=== PATIENT | male | born 1950 | race Two or more races ===

== ENCOUNTER 2017-03-11 03:22 | Emergency (ER) | payer MEDICARE, OTHER, BC ==
[~2017-03-11] VITALS: Ht 175.3 cm; Wt 77.1 kg
[2017-03-11] MEDS ORDERED: IBUP-1114 PO (03:50)
[2017-03-11] MEDS ORDERED: ALEV220C2 PO (03:50)
[2017-03-11] MEDS ORDERED: NS 1,000 ML IV ONE ×2 (04:15→05:30)
[2017-03-11] MEDS ORDERED: KETOROLAC 30 MG/ML VIAL (J1885) IV ONE (04:30)
[2017-03-11] MEDS ORDERED: ONDANSETRON 4MG/2ML VIAL (J2405) IV ONE (04:30)
[2017-03-11] MEDS ORDERED: MORPHINE 4 MG/ML 1ML SYRINGE IV ONE (04:30)
[2017-03-11 04:32] LABS: BASO % 0.4 % (0.0-1.0); EOS # 0.1 K/mm3 (0.0-0.50); EOS % 0.7 % (0.0-3.0); LARGE UNSTAINED CELL # 0.1 K/mm3 (0.0-0.4); LARGE UNSTAINED CELL % 1.3 % (0.0-4.0); LYMPH # 0.9 K/mm3 (1.5-4.5); LYMPH % 9.4 % (24.0-44.0); MEAN CORPUSCULAR HEMOGLOBIN 30.6 pg (27.0-33.0); MEAN CORPUSCULAR HGB CONC 34.2 g/dl (32.0-36.5); MEAN CORPUSCULAR VOLUME 89.3 fl (80.0-96.0); MONO # 0.3 K/mm3 (0.0-0.8); MONO % 3.9 % (0.0-5.0); NEUTROPHILS # 7.2 K/mm3 (1.8-7.7); NEUTROPHILS % 84.4 % (36.0-66.0); PLATELET COUNT, AUTOMATED 181 k/mm3 (150-450); RED CELL DISTRIBUTION WIDTH 12.8 % (11.5-14.5); WHITE BLOOD COUNT 8.5 K/mm3 (4.0-10.0)
[2017-03-11 05:03] LABS: ALBUMIN 3.8 GM/DL (3.2-5.2); ALBUMIN/GLOBULIN RATIO 0.81 (1.00-1.93); BILIRUBIN,DIRECT 0.1 MG/DL (0.0-0.2); BILIRUBIN,TOTAL 0.5 MG/DL (0.2-1.0); CALCIUM LEVEL 8.9 MG/DL (8.8-10.2); CREATININE FOR GFR 1.68 MG/DL (0.70-1.30); GLOMERULAR FILTRATION RATE 43.7 (>49); TOTAL PROTEIN 8.5 GM/DL (6.4-8.2)
[2017-03-11] MEDS ORDERED: GASTROGRAFIN SOLUTION 30ML (Q9963) As Ordered ONE (05:49)
[2017-03-11] MEDS ORDERED: GASTROGRAFIN SOLUTION 30ML (Q9963) PO ONE ×2 (06:15)
[2017-03-11] MEDS: MORPHINE 4 MG/ML 1ML SYRINGE IV PRN ×2 (06:29→08:18)
[2017-03-11 08:22] VITALS: BP 144/69
[2017-03-11] MEDS ORDERED: PERC5TAB6 PO (09:53)
[2017-03-11] MEDS ORDERED: COLA100C3 PO (09:54)
[2017-03-11] MEDS ORDERED: PERCOCET 5MG/325MG TAB PO ONE (10:00)
--- NOTE | 2017-03-11 10:25 | REP ---
CT ABDOMEN AND PELVIS WITHOUT IV CONTRAST: CT abdomen and pelvis performed without IV contrast. Sagittal and coronal reconstruction images are performed. The visualized lung bases demonstrate chronic fibrotic changes. The liver, gallbladder, spleen, adrenals, pancreas and left kidney appear grossly unremarkable. Right kidney demonstrates severe hydronephrosis. There is severe proximal right hydroureter with an abrupt transition point about the L3-4 disc space level. At that location, no stone is seen but there appears to be subtle soft tissue nodularity approximately 14 x 7 mm which could represent a soft tissue nodule or clot. The more distal right ureter is normal in caliber. No bladder calculus is seen. There is no abdominal aortic aneurysm. I see no adenopathy. There is no free air or free fluid. There is no bowel wall thickening. The appendix is normal. The prostate appears prominent in size. There is a small right inguinal hernia containing fat. There are degenerative changes of the spine. IMPRESSION: Severe right hydronephrosis and proximal right hydroureter with an abrupt transition point at about the L3-4 disc space level. At that location, there appears to be a possible soft tissue nodule or blood clot measuring 14 x 7 mm. No renal or ureteral calculi are seen. Signed by Oni Sweet MD 03/11/2017 07:53 P
--- NOTE | 2017-03-13 18:09 | ED PDOC ---
Post-Departure Follow-Up dr burch faxed formal report of ct abd/p for fu Domo Dsouza MD March 13, 2017 18:09
== END 2017-03-11 10:12 | disposition home or self-care (01) ==
LOC: M ED 05:40
DX: N13.30 Unspecified hydronephrosis (principal); N35.9 Urethral stricture, unspecified; N28.9 Disorder of kidney and ureter, unspecified
CPT/HCPCS: 74176; 80048; 80076; 81001; 83036; 83690; 85025; 87086; 93041; 96361; 96374; 96375; 96376; 99285; J1885; J2405; Q9963

== ENCOUNTER → 2017-03-12 | Outpatient (CLI) | payer MEDICARE, BC, OTHER ==
[~2017-03-12] MED LIST: ALEV220C2 PO; COLA100C3 PO; IBUP-1114 PO; PERC5TAB6 PO
[2017-03-12 19:05] LABS: CALCIUM LEVEL 7.9 MG/DL (8.8-10.2); CREATININE FOR GFR 1.74 MG/DL (0.70-1.30); POTASSIUM SERUM 4.1 MEQ/L (3.5-5.1)
== END ==
LOC: M SMT 14:21
PROVIDERS: ATTEND Nurse Practitioner Women's Health
DX: Z12.5 Encounter for screening for malignant neoplasm of prostate (principal); N13.0 Hydronephrosis with ureteropelvic junction obstruction
CPT/HCPCS: 36415; 80048; G0103

== ENCOUNTER → 2017-03-20 | Outpatient (CLI) | payer MEDICARE, BC, OTHER ==
[2017-03-20 13:38] LABS: CALCIUM LEVEL 8.7 MG/DL (8.8-10.2); CREATININE FOR GFR 1.71 MG/DL (0.70-1.30); GLOMERULAR FILTRATION RATE 42.9 (>49); POTASSIUM SERUM 4.5 MEQ/L (3.5-5.1)
== END ==
LOC: M SMT 08:27
PROVIDERS: ATTEND Nurse Practitioner Women's Health
DX: N13.0 Hydronephrosis with ureteropelvic junction obstruction (principal)

== ENCOUNTER → 2017-03-23 | Outpatient (CLI) | payer MEDICARE, BC, OTHER ==
[2017-03-23 10:42] LABS: MEAN CORPUSCULAR HEMOGLOBIN 30.1 pg (27.0-33.0); MEAN CORPUSCULAR HGB CONC 32.8 g/dl (32.0-36.5); MEAN CORPUSCULAR VOLUME 91.6 fl (80.0-96.0); RED CELL DISTRIBUTION WIDTH 12.4 % (11.5-14.5); WHITE BLOOD COUNT 9.2 K/mm3 (4.0-10.0)
--- NOTE | 2017-03-23 10:57 | REP ---
PA and lateral chest: There are no comparisons. The lung powers are clear. The cardiac size is normal The sherin, mediastinum, and bony thorax are unremarkable. Impression: Negative PA and lateral chest. Signed by Oni Samuel MD 03/23/2017 10:49 A
[2017-03-23 11:02] LABS: CALCIUM LEVEL 8.5 MG/DL (8.8-10.2); CREATININE FOR GFR 1.7 MG/DL (0.70-1.30); GLOMERULAR FILTRATION RATE 43.1 (>49); POTASSIUM SERUM 4.5 MEQ/L (3.5-5.1)
--- NOTE | 2017-03-23 19:57 | ECGEPIP ---
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
== END ==
LOC: M LAB 10:10
PROVIDERS: ATTEND Nurse Practitioner Women's Health
DX: Z01.818 Encounter for other preprocedural examination (principal); N13.0 Hydronephrosis with ureteropelvic junction obstruction

== ENCOUNTER 2017-04-10 09:04 | Inpatient (IN) | payer MEDICARE, BC, OTHER ==
[~2017-04-10] VITALS: Ht 172.7 cm; Wt 72.8 kg
[2017-04-10] VITALS (9 sets, daily range): BP systolic 121–164; BP diastolic 76–95
[~2017-04-10 09:04] MED LIST changes: +TYLE500T78 PO
[2017-04-10] MEDS ORDERED: LR 1,000 ML IV ONE (09:15)
[2017-04-10] MEDS ORDERED: CONRAY-60 60% 50ML VIAL (Q9961) As Ordered ONE (09:53)
[2017-04-10] MEDS ORDERED: MIDAZOLAM INJ 2 MG/2 ML VIAL (J2250) As Ordered ONE (11:34)
[2017-04-10] MEDS ORDERED: LR 1,000 ML IV SCH ×2 (12:00→19:00)
[2017-04-10] MEDS ORDERED: fentaNYL 100 MCG/2 ML INJECTION (J3010) IV PRN ×2 (12:00→19:00)
[2017-04-10] MEDS ORDERED: ONDANSETRON 4MG/2ML VIAL (J2405) IV PRN ×2 (12:00→19:00)
--- NOTE | 2017-04-10 13:47 | HPEPDOC ---
Medical History and Physical Date of Admission 04/10/17 History and Physical CONSULTATION REPORT FOR: Dr Bloom REASON FOR CONSULTATION: Medical Management DATE OF VISIT: 04/10/17 ATTENDING: Dr. Warner Garcias PCP: Dr Delarosa HPI: 67year old M with a past medical history significant for hydronephrosis with ureteropelvic junction obstruction following with urology and was scheduled for retrograde pyelogram today with Dr. Bloom. Upon monitoring the patient was noted to have third-degree AV block with heart rates in the 30s to 40s. The patient reports he is asymptomatic. He denies any chest pain or heaviness. Denies shortness of breath. Reports no palpitations. Denies presyncope or syncope or history of loss of consciousness. He denies any dizziness. He reports no cardiac history. He is unaware of any EKG abnormalities previously. He does not take any medications at home other than Tylenol as needed. He reports no recent rashes, tick bites or history of Lyme, but [place]. Denies any fevers, chills, weakness, fatigue , Headache, cough, palpitations, abdominal pain, N/V/D or changes in bowel or bladder habits. PMHx: Ureteral stricture Hydronephrosis with ureteropelvic junction obstruction PSHX: Denies SOCHX: Resides in: [facility] Marital Status: Kids: Two Employment: Retired from [employer] Tobacco use: Denies ETOH: States he stopped drinking 5 weeks ago. Prior to that he consumes 6-8 beers per day for years. Illicit Drugs: Denies Advanced directives: None FAMHX: Mother: , 95 years old. Dementia/pneumonia Father: , complications from fall Siblings: One brother, 2 sisters Alive, well Children: Alive, well Unexpected deaths due to medical reasons: None. ROS: As noted in HPI, otherwise 11pt ROS of systems reviewed and unremarkable. PE: GEN: 67 yo M, appears stated age. Well-nourished, well developed. No acute distress. Alert and oriented x 3. Pleasant, interactive. HEENT: Normocephalic, atraumatic. Pupils are equal, round, and reactive to light. Extraocular movements are intact. No nystagmus appreciated. Sclera are nonicteric. Conjunctiva without injection. Nose midline. Nasal turbinates without bogginess. EACs both patent BL. TMs both visualized and parikh with good cone of light, no bulging or erythema. No facial asymmetry. Moist mucous membranes. Dentition fair. Pharynx pink and moist, no cobblestoning. Neck supple , trachea midline. No lymphadenopathy or thyromegaly appreciated. CHEST: Bradycardic, +S1, +S2 LUNGS: Clear to auscultation bilaterally. No wheezes, rales, or rhonchi. Breathing appears symmetric and easy. Patient is speaking in full sentences. No accessory muscle use. ABD: Round, soft, non-tender, non-distended. +Bowel sounds throughout. No rebound or guarding. No costovertebral angle tenderness. EXT: Pulses 2+ bilaterally dorsalis pedis and radial. No lower extremity edema appreciated. SKIN: [place], dry, warm. Capillary refill <2sec. No rashes. NEURO: Alert and oriented x 3. Cranial nerves III-XII are intact. No focal deficits appreciated. 03/23/17 SINUS BRADYCARDIA POSSIBLE LEFT ATRIAL ENLARGEMENT LEFT BUNDLE BRANCH BLOCK A&P: 67year old M with a past medical history significant for hydronephrosis with ureteropelvic junction obstruction following with urology and was scheduled for bilateral retrograde pyelogram and ureteroscope today with Dr. Bloom. Upon monitoring the patient was noted to have third-degree AV block with heart rates in the 30s to 40s. 1. The patient will be admitted to the ICU, patient is discussed with Dr. Jimenez. The patient will be followed by Dr Martinez. 2. Third-degree AV block/bradycardia. Cardiology is consulted. Patient is discussed with Dr. Robledo, he is currently at the Pt's bedside evaluating need for pacemaker implant. Echocardiogram is requested. Will request Lyme screen. CBCd/CMP/Mag/CIP/troponin. 3. Hydronephrosis with ureteropelvic junction obstruction. Mgmt as per Urology. DVT prophylaxis. SCD/TEDS No anticoagulation pending surgery. Thank you for your consultation. We will continue to follow along with you. Vital Signs Vital Signs Date Time Temp Pulse Resp B/P (MAP) Pulse Ox O2 Delivery O2 Flow Rate FiO2 04/10/17 13:15 98.6 45 16 177/77 (110) 99 Nasal Cannula 2 Laboratory Data Labs 24H Item Value Date Time White Blood Count 9.2 K/mm3 03/23/17 1025 Red Blood Count 4.71 M/mm3 03/23/17 1025 Hemoglobin 14.2 g/dl 03/23/17 1025 Hematocrit 43.2 % 03/23/17 1025 Mean Corpuscular Volume 91.6 fl 03/23/17 1025 Mean Corpuscular Hemoglobin 30.1 pg 03/23/17 1025 Mean Corpuscular Hemoglobin Concent 32.8 g/dl 03/23/17 1025 Red Cell Distribution Width 12.4 % 03/23/17 1025 Platelet Count 344 k/mm3 03/23/17 1025 Sodium Level 141 MEQ/L 03/23/17 1025 Potassium Level 4.5 MEQ/L 03/23/17 1025 Chloride Level 105 MEQ/L 03/23/17 1025 Carbon Dioxide Level 31 MEQ/L 03/23/17 1025 Anion Gap 5 MEQ/L L 03/23/17 1025 Blood Urea Nitrogen 21 MG/DL H 03/23/17 1025 Creatinine 1.70 MG/DL H 03/23/17 1025 Glomerular Filtration Rate 43.1 L 03/23/17 1025 Fasting Glucose 110 MG/DL 03/23/17 1025 Calcium Level 8.5 MG/DL L 03/23/17 1025 Home Medications Scheduled PRN Acetaminophen (Tylenol Extra Strength) 500 Mg Tab, 1,000 MG PO Q6HP PRN for PAIN SCALE 1-5 Allergies Coded Allergies: No Known Allergies (Unverified , 03/30/17) Marisel Laughlin Apr 10, 2017 13:47
[2017-04-10 15:01] LABS: BASO % 0.4 % (0.0-1.0); EOS # 0.1 K/mm3 (0.0-0.50); EOS % 0.9 % (0.0-3.0); LARGE UNSTAINED CELL # 0.2 K/mm3 (0.0-0.4); LYMPH # 1.2 K/mm3 (1.5-4.5); LYMPH % 13.1 % (24.0-44.0); MEAN CORPUSCULAR HEMOGLOBIN 29.3 pg (27.0-33.0); MEAN CORPUSCULAR HGB CONC 32.2 g/dl (32.0-36.5); MEAN CORPUSCULAR VOLUME 91.1 fl (80.0-96.0); MONO # 0.5 K/mm3 (0.0-0.8); MONO % 5.6 % (0.0-5.0); PLATELET COUNT, AUTOMATED 271 k/mm3 (150-450); RED CELL DISTRIBUTION WIDTH 12.4 % (11.5-14.5)
[2017-04-10] MEDS ORDERED: LR 250 ML IV ONE (15:15)
[2017-04-10 15:19] LABS: ALBUMIN 2.7 GM/DL (3.2-5.2); ALBUMIN/GLOBULIN RATIO 0.63 (1.00-1.93); ALKALINE PHOSPHATASE 153 U/L (45-117); ALT/SGPT 46 U/L (12-78); ANION GAP 5 MEQ/L (8-16); AST/SGOT 24 U/L (15-37); BILIRUBIN,TOTAL 0.5 MG/DL (0.2-1.0); BLOOD UREA NITROGEN 21 MG/DL (7-18); CALCIUM LEVEL 8.6 MG/DL (8.8-10.2); CARBON DIOXIDE LEVEL 29 MEQ/L (21-32); CHLORIDE LEVEL 105 MEQ/L (98-107); CREATININE FOR GFR 1.31 MG/DL (0.70-1.30); GLOMERULAR FILTRATION RATE 58.3 (>49); GLUCOSE, FASTING 93 MG/DL (80-110); POTASSIUM SERUM 4.1 MEQ/L (3.5-5.1); SODIUM LEVEL 139 MEQ/L (136-145)
[2017-04-10] MEDS ORDERED: LIDOCAINE 1% MDV 20ML VIAL As Ordered ONE (15:35)
[2017-04-10] MEDS ORDERED: ISOVUE-300 61% 50ML VIAL (Q9967) As Ordered ONE (15:35)
[2017-04-10] MEDS ORDERED: VANCOMYCIN 1000 MG/20 ML VIAL (J3370) As Ordered ONE (15:36)
--- NOTE | 2017-04-10 16:11 | CR ---
DATE OF CONSULTATION: 04/10/2017 REFERRING PHYSICIAN: Dr. Dennis Bolaños REASON FOR CONSULTATION: Complete heart block with left bundle branch block. HISTORY OF PRESENT ILLNESS: Warner Warren is a generally well 67-year-old man with no previously known heart disease who developed right renal colic on mother's day of this year with ongoing persistent right flank pain. He was diagnosed with hydroureter and was scheduled earlier today to undergo placement of a ureter stent to relieve the hydronephrosis obstruction. Preoperatively, his ECG showed him to be in complete heart block with a ventricular rate of 40 beats per minute and presence of left bundle branch block with a leftward axis. Because of this, the urologic surgery was placed on hold, and cardiology was consulted for consideration of a permanent pacemaker. Patient is unaware of any tick bites , but he does do some lawn mowing. He does report that his has had Lyme disease twice in the past. There have been no fevers or chills. He is not bothered by any syncope, presyncope, or severe lightheadedness. No palpitations. No chest, neck, jaw, or upper extremity pain, pressure, tightness, squeezing, or heaviness with or without exertion. No exertional dyspnea. No leg or ankle edema. No orthopnea or paroxysmal nocturnal dyspnea (PND). No palpitations. No embolic events. No intermittent claudication. OTHER PAST MEDICAL AND SURGICAL HISTORY: No prior surgery. Right renal colic with obstructed right ureter, beginning Mother's Day of this year. No history of systemic hypertension. No diabetes. 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 FAMILY HISTORY: Negative for premature heart disease in first-degree relatives. His mother recently at age 95. SOCIAL HISTORY: . Resident of [place]. Occasional alcohol. Not smoking. REVIEW OF SYSTEMS: He has had a rash over his anterior chest region, beginning of Mother's Day of this year. No fevers or chills. No unexplained weight loss. He wears glasses. No nausea or vomiting. No anxiety, panic attacks, or depression. All other 10-point review of systems is negative. PHYSICAL EXAMINATION: A pleasant man who appears his chronological age who is not in any respiratory or psychologic distress. Normal body weight. Height 68 inches, weight 73.9 kg, body mass index (BMI) 24.8. Temperature 98.6, pulse 45, respiratory rate 16, blood pressure (BP) 177/77, oxygen saturation 99% on oxygen at 2 liters per minute by nasal cannula, respiratory rate 16, pulse 45 (regular). No conjunctival pallor, scleral icterus, or xanthomas. Some missing teeth. Teeth were in fair condition. Oral mucosa is moist and without pallor or cyanosis. No conjunctival pallor, scleral icterus, or xanthomas. Jugular venous pulsations were 3 cm. Trachea midline. No palpable thyroid. No clubbing, nail bed stenosis, or splinter hemorrhages. An erythematous rash, not raised, was present over the anterior chest. No skin pallor or icterus. Oriented to person, place, and time. Mood and affect normal. Curvature of the spine normal. Gait not tested at this time because patient is on bed rest. Gross motor strength and tone normal. No abnormal muscle atrophy, fasciculations, or tremors. Respiratory expansion effort was normal. No crackles or wheezes. No palpable apex beat. No lifts, heaves, thrills, or palpable heart sounds. First and second heart sounds are variable in intensity. Paradoxical S2. No S3 or S4. No murmurs. Carotids are normal in volume and contour without bruits. No palpable abdominal aorta. No abdominal bruits. Femoral pulses normal. Pedal pulses normal. No lower extremity edema. Novaricose veins. Abdomen was soft, nontender with normal bowel sounds. No hepatosplenomegaly or organomegaly. Liver span 12 cm in the right midclavicular line. Stool for occult blood not presently indicated. INVESTIGATIONS: Posterior-anterior (PA) and lateral chest x-ray acquired 03/03/2017 reported to be negative chest x-ray. Lung powers clear. Normal heart size. Electrocardiogram 04/10/2017 at 11:55 a.m. showed complete heart block with underlying sinus rhythm. Ventricular rate 40 basic metabolic panel, left bundle branch block with leftward axis. Abnormal ECG. Laboratory work 04/10/2017 at 1424 hours shows WBC 9.0, hemoglobin 11.9, hematocrit 36.9, neutrophils 78.0% (elevated), monocytes 5.6% (elevated), platelets 271. The complete medical profile, cardiac entry panel, and troponin I are presently pending from 04/10/2017. Laboratory work 03/23/2017 showed sodium 141, potassium 4.5, chloride 105, CO2 of 31, BUN 21, creatinine 1.70, estimated GFR 43.1. ASSESSMENT AND PLAN: 1. Complete heart block. Complete heart block is asymptomatic. It is associated with left bundle branch block. Most likely degenerative conduction system disease; however, Lyme disease would be in the differential diagnosis. Patient is not symptomatic with complete heart block but does have a slow ventricular rate with associated left bundle branch block. He meets criteria for implantation of a permanent dual-chamber pacemaker. Pacemaker implantation (including the option of no pacemaker, risk of syncope and ) was discussed with the patient. Risks of pacemaker implantation explained to the patient included, but not all inclusive: Bleeding, infection (1%), pneumothorax (1%), cardiac dysrhythmias, poor wound healing, infection (1%), and cardiac perforation with cardiac tamponade (12/999) . Patient was agreeable and signed the consent form. He will undergo implantation of a permanent dual-chamber pacemaker later on today. 2. Left bundle branch block. I did a quick look with an echocardiogram at the bedside. At the time I was interviewing the patient, and, although I did not record any images, his left ventricular ejection fraction (LVEF) appears to be above 50%. It appears normal. He does have paradoxical septal motion. A formal echocardiogram Doppler has been requested for later today when the [employer] Member is available. As noted, I did not record any images because I am not very familiar with operating and using this particular echocardiogram machine. The purpose was to determine the EF visually to decide between a pacemaker versus a cardiac resynchronization therapy pacemaker. 3. Right renal colic with right hydroureter with right ureter obstruction, managed by urology. NOELLE
[2017-04-10] MEDS ORDERED: ePHEDrine SULFATE 25 MG/5 ML(5MG/ML) SYRINGE As Ordered ONE (17:16)
[2017-04-10] MEDS ORDERED: ONDANSETRON 4MG/2ML VIAL (J2405) As Ordered ONE (17:16)
[2017-04-10] MEDS ORDERED: LIDOCAINE 2% INJ 100 MG/5 ML SDV (FOR ANES.) As Ordered ONE (17:16)
[2017-04-10] MEDS ORDERED: PROPOFOL 200 MG/20 ML VIAL As Ordered ONE ×3 (17:16→18:09)
[2017-04-10] MEDS ORDERED: MIDAZOLAM INJ 5 MG/ML VIAL (J2250) As Ordered ONE (17:16)
[2017-04-10] MEDS ORDERED: fentaNYL 100 MCG/2 ML INJECTION (J3010) As Ordered ONE (17:16)
[2017-04-10] MEDS ORDERED: NEOSPORIN TOP OINT 15GM As Ordered ONE (18:17)
--- NOTE | 2017-04-10 19:11 | REP ---
PACEMAKER FLUOROSCOPY: 04/10/2017: Comparison chest x-ray: 03/23/2017. Technique: Single view from C-arm fluoroscopy provided to Dr. Robledo of te cardiology division for pacemaker insertion. Clinical history: Third degree AV block. Findings. Leads projecting over the right atrium and right ventricle are present on the single image. Fluoroscopy time: 6-udjaya-74-seconds. Signed by Terence Ko MD 04/11/2017 11:40 A
--- NOTE | 2017-04-10 19:44 | RO ---
DATE OF PROCEDURE: 04/10/2017 PREPROCEDURE DIAGNOSIS: Complete heart block. POSTPROCEDURE DIAGNOSIS: Complete heart block. FINDINGS: Complete heart block. PROCEDURE PERFORMED: Implantation of a permanent dual-chamber pacemaker. SURGEON: Warner Robledo MD DIRECTOR OF GRANTS: None. ANESTHESIA: 1% Lidocaine local/monitored anesthetic care. SPECIMENS: None. ESTIMATED BLOOD LOSS: Less than 20 mL. BLOOD PRODUCTS REPLACED: None. DRAINS: None. COMPLICATIONS: None. DESCRIPTION OF PROCEDURE: The patient was prepped and draped over the left pectoral region. 3M Ioban film was applied. Lidocaine 1% was used for local anesthetic. A left subclavian venogram times two was performed using 15 mL mixture of three parts contrast/one part normal saline injected via a peripheral vein in the left upper extremity, and this was used under real time under fluoroscopy to help localize and percutaneously enter into left subclavian vein with a micropuncture needle. This was then guidewire exchanged to place the guidewires that came with the #8-Danish sheath into the vein. Next, a PEAK PlasmaBlade was used to make an incision approximately 2-1/2 to 3 inches in length, 1 cm below the skin entry site of the guidewire and approximately parallel to the left clavicle. The PEAK PlasmaBlade was used to get through the fatty layer and the fibrous Patrick fascia. The pacemaker pocket was then formed using blunt dissection to separate the Patrick fascia from the prepectoral fascia using blunt dissection using 2 fingers. Next, the guidewire was pulled through the skin into the incision site. Next, I used another micropuncture needle was used to get separate venous access at the level of the pectoral muscle and more lateral to the first guidewire and this was done with fluoroscopic guidance using the first guidewire as a visual guide. This was then guidewire exchanged to the guidewire that came with the other #8-Danish sheath. Next, the #8-Danish sheath with introducer was then placed over the more of the lateral guidewires and placed into the vein. This was used for vein access for the right ventricle lead. The right ventricle lead was placed under fluoroscopic guidance into the right ventricle apex position and secured with a total of ten turns. This position was found to be electrically and anatomically satisfactory, and no diaphragm stimulation could be palpated on either side with 10 volts high-output pacing. The #8-Danish sheath was removed and the ventricle lead was secured to the pectoral muscle using the suppled tie-down sleeve using three individual sutures consisting to secure to muscle consisting of #0 Ethibond with one suture around each notch on the tie down sleeve. Next, the other #8-Danish sheath was placed over the more medial of the guidewires and was advanced into the subclavian vein. It was used vein access for the right atrial lead. The right atrial lead was placed into the right atrial position with the help of the preformed J-stylette where is was secured with a total of ten turns. The preformed J-Stylette was removed and the lead remained in stable position. It was secured with a total of ten turns. This position was found to be electrically and anatomically satisfactory, and no diaphragm stimulation could be palpated on either side on each lead with 10 volts high-output pacing. The #8-Danish sheath was split apart and removed, and the atrial lead was secured to the pectoral muscle using the supplied tie-down sleeve using three sutures to secure the tie-down sleeve to the pectoral muscle using #0 Ethibond suture material. Next, another #0 Ethibond suture was placed at pectoral muscle to serve as the tie-down for pacemaker pulse generator. The terminal pins of the respective ports of the ventricle and atrial lead were placed into the header of the pacemaker pulse generator, and each one was secured by tightening the set screws with the hex screwdriver. The extra lead material was coiled underneath the pulse generator and placed along with the pulse generator with the pacemaker pocket with the pacemaker pulse generator on top and excess lead material below. The pulse generator was then secured to the pectoral muscle with the Ethibond suture previously placed. The deep layer was closed using individual sutures consisting of #2-0 Vicryl. Next, a running #3-0 Vicryl suture was used to help approximate the more superficial area. The skin was closed using wilber. The patient tolerated the procedure well without any immediate complications. The pacemaker pulse generator implanted was a [employer] MRI, model number [id number] with serial number [id number]. The right ventricle lead implanted was a [employer] Tendril MRI, model number [id number], 58 cm with serial number [id number]. Final testing in the operating room with the PSA analyzer for the right ventricle lead showed a capture threshold of 0.8 V at 0.4 ms with R wave amplitude of 8.0 mV and lead impedance of 681 ohms. The atrial lead implanted was a [employer] Tendril MRI, model number [id number], 52 cm with serial number [id number]. Final testing in the operating room for the right atrial lead showed a capture threshold of 1.5 V at 0.4 ms with P wave amplitude of 4.5 mV and lead impedance of 506 ohms. ADDITIONAL COMMENT: Now that this patient has a permanent dual chamber pacemaker, he has cardiac clearance to proceed to the operating room for placed urologic stent into the ureter to relieve hydronephrosis.
--- NOTE | 2017-04-10 20:22 | REP ---
AP PORTABLE CHEST: 04/10/2017. Comparison: 03/23/2017. Clinical history: Status post pacer insertion. Third degree AV block. Findings: Skin wilber overlying the battery unit upper left chest with two leads present, tips in the right atrium and right ventricle. There is no effusion or pneumothorax on the left. Lungs are adequately inflated. No infiltrate or mass. Slight elevation of the right diaphragm as before. The aorta is mildly tortuous, but normal for age. Airway intact. Heart not grossly enlarged. Bones unchanged. Impression: 1. New dual lead pacer over the left upper chest with lead tips in the right atrium and right ventricle. 2. No effusion or pneumothorax on the left. No other findings. Signed by Terence Ko MD 04/11/2017 11:46 A
[2017-04-10] MEDS ORDERED: SLF 3 ML SYR IV PRN (21:15)
[2017-04-10] MEDS: ASCORBIC ACID 250 MG TAB PO SCH (21:39)
[2017-04-10] MEDS: ACETAMINOPHEN TAB 650MG DOSE (2X325MG) PO PRN (21:40)
[2017-04-10] MEDS: SLF 3 ML SYR IV SCH (21:40)
[2017-04-11] VITALS (7 sets, daily range): BP systolic 121–158; BP diastolic 77–94
[2017-04-11] MEDS: SLF 3 ML SYR IV SCH ×2 (04:57→14:21)
[2017-04-11 05:00] LABS: BASO % 0.4 % (0.0-1.0); EOS # 0.2 K/mm3 (0.0-0.50); EOS % 1.5 % (0.0-3.0); LARGE UNSTAINED CELL # 0.1 K/mm3 (0.0-0.4); LARGE UNSTAINED CELL % 1.4 % (0.0-4.0); LYMPH % 8.7 % (24.0-44.0); MEAN CORPUSCULAR HEMOGLOBIN 29.1 pg (27.0-33.0); MEAN CORPUSCULAR HGB CONC 32.3 g/dl (32.0-36.5); MEAN CORPUSCULAR VOLUME 90.2 fl (80.0-96.0); MONO # 0.5 K/mm3 (0.0-0.8); MONO % 5.6 % (0.0-5.0); NEUTROPHILS % 82.4 % (36.0-66.0); PLATELET COUNT, AUTOMATED 255 k/mm3 (150-450); RED CELL DISTRIBUTION WIDTH 12.6 % (11.5-14.5); WHITE BLOOD COUNT 9.7 K/mm3 (4.0-10.0)
[2017-04-11] MEDS: ACETAMINOPHEN TAB 650MG DOSE (2X325MG) PO PRN ×2 (05:02→10:35)
[2017-04-11 05:27] LABS: ALBUMIN 2.6 GM/DL (3.2-5.2); ALBUMIN/GLOBULIN RATIO 0.55 (1.00-1.93); BILIRUBIN,TOTAL 0.6 MG/DL (0.2-1.0); CALCIUM LEVEL 8.4 MG/DL (8.8-10.2); CREATININE FOR GFR 1.42 MG/DL (0.70-1.30); GLOMERULAR FILTRATION RATE 53.1 (>49); POTASSIUM SERUM 3.8 MEQ/L (3.5-5.1); TOTAL PROTEIN 7.3 GM/DL (6.4-8.2)
--- NOTE | 2017-04-11 05:53 | ECGEPIP ---
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
--- NOTE | 2017-04-11 05:59 | ECGEPIP ---
Stationary ECG Study [facility] Test Date: 2017-04-10 Pat Name: WARNER DELONG Department: Room: - Gender: M [employer] Dean: BETO : 1950 Requested By: Warner Robledo Order Number: [id number] Reading MD: José Miguel Bailey Measurements Intervals [place] Rate: 94 P: 50 ME: 178 QRS: -83 QRSD: 164 T: 66 QT: 429 QTc: 537 Interpretive Statements Normal sinus rhythm with paced ventricular complexes Pacemaker activity is new compared to prior tracing of 04/10/2017 Electronically Signed On 04-11-2017 5:58:55 EDT by José Miguel Bailey
[2017-04-11] MEDS: ASCORBIC ACID 250 MG TAB PO SCH (08:50)
--- NOTE | 2017-04-11 09:27 | REP ---
CHEST, TWO VIEWS: Two views of the chest are performed. There is no acute infiltrate or pulmonary edema. The heart is not enlarged. The mediastinal silhouette is unremarkable. Left dual lead pacemaker appears to be in good position. There is no pneumothorax. There are mild degenerative changes of the spine. IMPRESSION: Left dual lead pacemaker appears to be in good position. No pneumothorax or acute infiltrate. Signed by Oni Sweet MD 04/11/2017 07:44 P
--- NOTE | 2017-04-11 15:01 | ECHO ---
DATE OF PROCEDURE: 04/11/2017 REFERRING PHYSICIAN: Dr. Dennis Bolaños INDICATION: Abnormal ECG. HEIGHT: 173 cm. WEIGHT: 74 kg. 2D MEASUREMENTS: Left atrium - 3.0 cm Ventricular septum - 1.02 cm Posterior wall - 1.05 cm Left ventricle diastole - 4.4 cm Aortic root - 3.2 cm LVOT - 2.0 cm Inferior vena cava - 1.1 cm DOPPLER MEASUREMENTS: Aortic valve velocity - 135 cm/s LVOT velocity - 100 cm/s LVOT VTI - 16.9 cm Mitral E velocity - 107 cm/s Mitral A velocity - 37.5 cm/s Mitral deceleration time - 92 ms Mild tricuspid regurgitation Estimated right ventricular systolic pressure 28 mmHg Estimated right atrial pressure of 5 mmHg MITRAL ANNULAR TISSUE DOPPLER: E prime septal 16.1 cm/s E prime lateral 13.5 cm/s DESCRIPTION: The rhythm was sinus rhythm with ventricular pacing. This was a moderately technically difficult echocardiogram. This is a 2D, M-mode, color flow Doppler and pulsed wave Doppler examination including mitral annular tissue Doppler. CONCLUSIONS: 1. Preserved overall LV systolic function. LVEF 55% by visual estimate. Paradoxical motion was present predominantly involving the apical region most prominently and progressively less so towards the base. 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 No LV apical thrombus. Normal LV wall motion and wall thickening elsewhere. Normal LV diastolic function. 2. No pericardial effusion. 3. Central venous pressure estimated to be 0-5 mmHg at the time of the study. 4. Presence of endocardial right atrial and right ventricle pacemaker leads. 5. Otherwise, normal appearing echocardiogram Doppler, although moderately technically difficult. RECOMMENDATION: Recommend further evaluation of the regional wall motion abnormality and apical LV aneurysm with an outpatient stress SPECT myocardial perfusion imaging study, which I plan to arrange. cc: Shakir Delarosa Jr, MD
[2017-04-12 00:08] LABS: Lyme Disease IgG/IgM Antibodie <0.91 ISR (0.00-0.90); Lyme Disease IgM Ab Quantitati <0.80 index (0.00-0.79)
--- NOTE | 2017-04-12 21:03 | DSES ---
DATE OF ADMISSION: 04/10/2017 DATE OF DISCHARGE: 04/11/2017 DISCHARGE DIAGNOSIS: Complete heart block. SECONDARY DIAGNOSES: 1. Left-sided hydronephrosis. 2. Ureteral stricture. CONSULTATIONS: Dr. Bloom, urology, Dr. Robledo, cardiology. PROCEDURES: Permanent pacemaker placement 04/10/2017. HOSPITAL COURSE: The patient is a 67-year-old man who has a past medical history of hydronephrosis with ureteropelvic junction obstruction, ureteral stricture, who had been following with urology. He was scheduled for retrograde pyelogram on April [address] Bloom. The patient in preoperative was noted to be in third-degree atrioventricular (AV) block with a heart rate in the 30s and 40s, although asymptomatic. He was seen by Dr. Robledo and admitted to the hospitalist service. The patient did go for permanent pacemaker placement. A Lyme titer was drawn and is pending at the time of discharge. The patient tolerated the procedure well. He was seen in followup by Dr. Robledo on 04/11/2017 and deemed medically stable for discharge home after pacemaker check and chest x-ray and examination of the wound. SUBJECTIVE: Today the patient reports he feels well. He wants to go home. He denies any complaints at this time. OBJECTIVE: VITAL SIGNS: Temperature 99, pulse 108, respiratory rate 18, blood pressure (BP) 143/89, oxygen saturation 96% on room air. GENERAL: He is a pleasant man sitting in a recliner. He is in no distress. HEENT: Cranial nerves II-XII are grossly intact. He has moist mucous membranes. No elevation in central venous pressure (CVP). CARDIOVASCULAR: S1, S2. His dressing is clean, dry, and intact. His left arm is in a sling. ABDOMEN: Benign. EXTREMITIES: No clubbing, cyanosis, or edema. LABORATORY STUDIES: WBC 9.7, hemoglobin 12.1, platelet count 255. Chemistry panel: Sodium 138, potassium 3.8, chloride 102, bicarbonate 29, BUN 18, creatinine 1.4. Troponin 0.47, up from 0.02. Serology on Lyme, IgG, IgM is pending. IMAGING: The patient had a chest x-ray this morning, which revealed left dual-lead pacemaker appears to be in good position. No pneumothorax or acute infiltrate. ASSESSMENT AND PLAN: This is a 67-year-old man with complete heart block status post permanent pacemaker placement. 1. Complete heart block status post permanent pacemaker placement. Dr. Robledo's help is greatly appreciated. The patient tolerated the procedure well. Dr. Robledo interrogated his device, checked his wound, examined a chest x-ray, and feels that the patient is medically stable for discharge home at this time. He is aware of the troponin. The patient's current temperature of 100.2. He would like the patient to be seen at the pacemaker clinic and also to followup the patient's Lyme titer. 2. Left-sided hydronephrosis secondary to ureteral stricture. I have spoken with Dr. Bloom, who has rescheduled the patient to have his pyelogram next week. The patient is agreeable for this. This patient will be discharged home with close followup with urology. DISPOSITION: The patient is being discharged home to the care of his family. He is to followup with the primary care physician (PCP) in 7 days, followup with Dr. Robledo within 1 week, followup with urology as scheduled. His diet is a DASH. His activity is limited use of the left upper extremity until followup with Dr. Robledo. Wound care is as per Dr. Robledo. MEDICATION AT THE TIME OF DISCHARGE: Tylenol 1 gram every 6 hours as needed for pain Greater than 30 minutes spent organizing disposition.
[2017-04-17] MEDS ORDERED: TYLE650T35 PO (17:14)
[2017-04-17] MEDS ORDERED: CIPR500T3 PO (17:14)
== END 2017-04-11 16:05 | disposition home or self-care (01) | DRG 243 ==
LOC: M SDC 09:04 → M ICU 13:54 → M SDC 19:45 → M ICU 19:45 → M SDC 04-11 16:05 → M ICU 04-11 16:05
PROVIDERS: ADMIT Internal Medicine; ATTEND Internal Medicine
PROC: 02H63JZ Insertion of Pacemaker Lead into Right Atrium, Percutaneous Approach (ICD-10-PCS; 2017-04-10)
PROC: 02HK3JZ Insertion of Pacemaker Lead into Right Ventricle, Percutaneous Approach (ICD-10-PCS; 2017-04-10)
PROC: 0JH606Z Insertion of Pacemaker, Dual Chamber into Chest Subcutaneous Tissue and Fascia, Open Approach (ICD-10-PCS; principal; 2017-04-10 11:10)
DX: I44.2 Atrioventricular block, complete (principal); N13.1 Hydronephrosis with ureteral stricture, not elsewhere classified

== ENCOUNTER → 2017-04-17 | Day surgery (SDC) | payer MEDICARE, BC, OTHER ==
[~2017-04-17] MED LIST changes: +ACETAMINOPHEN TAB 650MG DOSE (2X325MG) PO SCH; +CIPR500T3 PO; +CIPROFLOXACIN 500 MG TAB PO SCH; +CONRAY-60 60% 50ML VIAL (Q9961) As Ordered ONE; +KETOROLAC 60 MG/2 ML VIAL (J1885) As Ordered ONE; +LIDOCAINE 2% INJ 100 MG/5 ML SDV (FOR ANES.) As Ordered ONE; +LR 1,000 ML IV ONE; +LR 1,000 ML IV SCH; +METOCLOPRAMIDE INJ 10MG/2ML VIAL (J2765) IV PRN; +MIDAZOLAM INJ 2 MG/2 ML VIAL (J2250) As Ordered ONE; +MORPHINE 2 MG/ML 1ML SYRINGE IV PRN; +ONDANSETRON 4MG/2ML VIAL (J2405) As Ordered ONE; +ONDANSETRON 4MG/2ML VIAL (J2405) IV PRN; +PERCOCET 5MG/325MG TAB PO PRN; +PROPOFOL 200 MG/20 ML VIAL As Ordered ONE; +TYLE650T35 PO; +dexameTHASONE 4 MG/ML 1ML VIAL (J1100) As Ordered ONE; +fentaNYL 100 MCG/2 ML INJECTION (J3010) As Ordered ONE; +fentaNYL 100 MCG/2 ML INJECTION (J3010) IV PRN
--- NOTE | 2017-04-17 17:11 | REP ---
C-ARM VIEWS DURING RETROGRADE PYELOGRAM: Multiple C-Arm views are performed. There is contrast injected into a dilated right ureter and pelvicaliceal system. A right ureteral stent is placed with the proximal end coiled in the dilated right renal pelvis and the distal end coiled in the region of the urinary bladder. 3 minutes 4 seconds fluoroscopy time was utilized for this procedure. Signed by Oni Sweet MD 04/19/2017 05:06 P
[2017-04-17 19:15] VITALS: BP 142/88
--- NOTE | 2017-04-19 14:58 | RO ---
DATE OF PROCEDURE: 04/17/2017 PREOPERATIVE DIAGNOSIS: Right hydronephrosis. POSTOPERATIVE DIAGNOSES: Right hydronephrosis, plus right ureteral neoplasm. SURGERY PERFORMED: Cystoscopy, plus bilateral retrograde pyelograms, plus right ureteroscopy, plus right ureteral biopsies, plus right double J stent placement, plus fulguration of prostatic bleeders with a Bugbee. SURGEON: Dr. Db Bloom RAIL DETECTOR CAR OPERATOR: None. ANESTHESIA: General. FINDINGS: Right ureteral neoplasm, solid, hard, impossible to actually access the kidney with a flexible ureteroscope. COMPLICATIONS: None. ESTIMATED BLOOD LOSS: N/A. HISTORY OF PRESENT ILLNESS: 67-year-old male patient that has a right hydronephrosis and right flank pain. CT scan of the abdomen and pelvis showed a right ureteral solid mass. For this reason, we have consented him for a cystoscopy, plus bilateral retrograde pyelograms, plus possible bilateral ureteroscopy, possible bilateral ureteral biopsies, possible bilateral double J stent placement. PROCEDURE DESCRIPTION: In a patient under general anesthesia in supine modified low lithotomy position, after prepping and draping the area of concern, which included the entire genitalia and abdomen, we started by introducing a cystoscope, #21-Nepalese in diameter with a 30-degree lens. The fossa navicularis, penile urethra, bulbar urethra, and membranous urethra were totally normal. The prostatic urethra had lateral lobes touching and a middle lobe moderate in size. Both ureteral orifices were seen excreting clear urine. The bladder had no tumors, no stones, no foreign objects. We then proceeded to pass a Pollack catheter, #5-Nepalese, into the right ureteral orifice, which was at the border of the bladder diverticulum. We catheterized and did a right retrograde pyelogram. We could see the retrograde pyelogram of the ureter very well up to the proximal ureter. At the proximal ureter, there was a filling defect in the proximal ureter imaging. The contrast did not pass. We then proceeded to advance the Pollack catheter and pass a Sensor guidewire up to the right collecting system. After multiple attempts, we could actually bypass the narrowing of the ureter and did a retrograde pyelogram of the proximal ureter and the kidney. There was severe hydronephrosis. We then proceeded to actually take out the Pollack catheter and leave the guidewire. We then proceeded to actually put a ureteral access sheath 35 cm in length and #12-Nepalese in diameter up to the mid ureter. Through this ureteral access sheath, we actually advanced a flexible ureteroscope with a biopsy and grabbed four biopsies from the area of the solid ureteral neoplasm obstructing the lumen of the ureter. We then proceeded to take the ureteroscope out and the ureteral access sheath and loaded a cystoscope and performed a retrograde pyelogram of the left kidney. The retrograde pyelogram of the left kidney was completely normal. There were no filling defects in the ureter, and the collecting system was normal in the left kidney. We then proceeded to pass a double J stent following the guidewire in the right kidney. Once we passed the double J stent on the right kidney, we took the guidewire out and we could see the curl in the kidney and the curl in the bladder. We then proceeded to actually fulgurate with a Bugbee at 30 power with sterile water some bleeding vessels from the middle lobe due to the trauma from the ureteral access sheath and the cystoscope. After fulgurating the bleeding vessels, we could see very clear. We secured hemostasis very well with a Bugbee and then irrigated the bladder back and forth with an Ellik evacuator, taking all the clots out. We then proceeded to extract the cystoscope. PLAN: The patient will go home today with antibiotic and pain medication. He will followup in 1 week at [facility] [place]. We have taken four biopsies, and we will wait for results; however, if they are inconclusive, the patient will need a right nephroureterectomy due to the reason that he has a solid component in the proximal ureter on a CT scan of the abdomen and pelvis and this has been confirmed by right flexible ureteroscopy. 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 We have discussed this with the family, and he will followup in 1 week to actually consent him and schedule him for this surgery as soon as possible.
== END | disposition home or self-care (01) ==
LOC: M SDC 12:11
PROVIDERS: ATTEND Urology
DX: N13.30 Unspecified hydronephrosis (principal); Z95.0 Presence of cardiac pacemaker
CPT/HCPCS: 52332; 52354; 76000; 88305; C1726; C1894; C2617; J0690; J1100; J1885; J2250; J2405; J3010; Q9961

== ENCOUNTER → 2017-04-23 | Outpatient (CLI) | payer MEDICARE, BC, OTHER ==
[~2017-04-23] MED LIST changes: -ACETAMINOPHEN TAB 650MG DOSE (2X325MG) PO SCH; +ASPI1TAB PO; +CIPR-249 PO; -CIPROFLOXACIN 500 MG TAB PO SCH; -COLA100C3 PO; +COLA100C5 PO; -CONRAY-60 60% 50ML VIAL (Q9961) As Ordered ONE; +CRES20TA PO; -KETOROLAC 60 MG/2 ML VIAL (J1885) As Ordered ONE; +LEVA1TAB2 PO; -LIDOCAINE 2% INJ 100 MG/5 ML SDV (FOR ANES.) As Ordered ONE; -LR 1,000 ML IV ONE; -LR 1,000 ML IV SCH; -METOCLOPRAMIDE INJ 10MG/2ML VIAL (J2765) IV PRN; -MIDAZOLAM INJ 2 MG/2 ML VIAL (J2250) As Ordered ONE; -MORPHINE 2 MG/ML 1ML SYRINGE IV PRN; -ONDANSETRON 4MG/2ML VIAL (J2405) As Ordered ONE; -ONDANSETRON 4MG/2ML VIAL (J2405) IV PRN; +PERC5TAB12 PO; -PERC5TAB6 PO; -PERCOCET 5MG/325MG TAB PO PRN; +PROBCAP4 PO; -PROPOFOL 200 MG/20 ML VIAL As Ordered ONE; +VITA500T PO; -dexameTHASONE 4 MG/ML 1ML VIAL (J1100) As Ordered ONE; -fentaNYL 100 MCG/2 ML INJECTION (J3010) As Ordered ONE; -fentaNYL 100 MCG/2 ML INJECTION (J3010) IV PRN
[2017-04-23 14:54] LABS: MEAN CORPUSCULAR HEMOGLOBIN 29.5 pg (27.0-33.0); MEAN CORPUSCULAR HGB CONC 32.3 g/dl (32.0-36.5); MEAN CORPUSCULAR VOLUME 91.4 fl (80.0-96.0); RED CELL DISTRIBUTION WIDTH 13.4 % (11.5-14.5); WHITE BLOOD COUNT 7.9 K/mm3 (4.0-10.0)
[2017-04-23 14:58] LABS: ANION GAP 4 MEQ/L (8-16); BLOOD UREA NITROGEN 24 MG/DL (7-18); CALCIUM LEVEL 9.2 MG/DL (8.8-10.2); CARBON DIOXIDE LEVEL 29 MEQ/L (21-32); CHLORIDE LEVEL 109 MEQ/L (98-107); CREATININE FOR GFR 1.14 MG/DL (0.70-1.30); GLOMERULAR FILTRATION RATE > 60.0 (>49); GLUCOSE, FASTING 100 MG/DL (80-110); POTASSIUM SERUM 4.4 MEQ/L (3.5-5.1); SODIUM LEVEL 142 MEQ/L (136-145)
== END ==
LOC: M SMT 10:06
PROVIDERS: ATTEND Urology
DX: N13.1 Hydronephrosis with ureteral stricture, not elsewhere classified (principal)
CPT/HCPCS: 36415; 80048; 85027; G0463

== ENCOUNTER → 2017-05-07 | Outpatient (CLI) | payer MEDICARE, BC, OTHER ==
[~2017-05-07] MED LIST changes: +ISOVUE-370 76% 100ML VIAL (Q9967) As Ordered ONE
--- NOTE | 2017-05-07 14:09 | REP ---
CT abdomen and pelvis without and with IV or oral contrast: CT urogram protocol. History: Hydronephrosis. CT contrast dose: 100 mL of Isovue 370 is given intravenously. Comparison CT study is from March 11, 2017. The prior study showed severe right-sided hydronephrosis with a possible clot or nodule involving the proximal ureter. Findings: Digital preliminary community organization worker radiograph demonstrates a double pigtailed ureteral stent in place on the right. There is a pacemaker in the right heart. Bowel gas pattern is normal. Axial CT images show that the lung bases are clear. Double pigtailed ureteral stent is seen in good position proximally. There is persistent dilation of the renal pelvis on the right with mural thickening and enhancement of the renal pelvic wall. This may reflect pyelonephritis. Otherwise the hydronephrosis is resolved. The renal pelvis remains 3.2 cm in transverse dimension. Delayed scan images show no definite obstructive lesion at the UP junction. No definite stone is seen along the course of the ureter. On the initial post injection study there is slight asymmetric delay of right renal parenchymal contrast enhancement again question pyelonephritis or persistent obstruction. No adrenal lesion is seen. No periaortic or pericaval lesion is seen. Small and large intestinal bowel loops are normal. There is some enlargement of prostate gland as before. Impression: Double pigtailed right ureteral stent in place with persistent dilation of the right renal pelvis and mild intrarenal hydronephrosis. Mildly delayed function. Mural thickening and enhancement of the dilated renal pelvis is seen consistent with pyelitis. No definite mass lesion is seen by CT. . Signed by Norris Rawls MD 05/07/2017 03:51 P
== END ==
LOC: M RAD 11:09
PROVIDERS: ATTEND Urology
DX: N13.1 Hydronephrosis with ureteral stricture, not elsewhere classified (principal); Z96.0 Presence of urogenital implants
CPT/HCPCS: 74178; Q9967

== ENCOUNTER → 2017-05-08 | Outpatient (CLI) | payer MEDICARE, BC, OTHER ==
[~2017-05-08] MED LIST changes: -ISOVUE-370 76% 100ML VIAL (Q9967) As Ordered ONE
--- NOTE | 2017-05-08 11:39 | REP ---
Nuclear renal scintigraphy with differential flow and function analysis: History: Hydronephrosis. Comparison CT study is from May 07, 2017. Technique: 8.8 mCi technetium 99m Mag-3 is injected and posterior flow and excretory phase images are acquired. Renal cortical regions of interest are drawn for renal function analysis. Scintigraphic findings: In the posterior flow study shows normal symmetric perfusion of the renal beds bilaterally. There is no evidence of intrarenal mass on either side. There is some photopenia centrally in the pelvis and peripelvic region of the right kidney. Excretory phase images demonstrate delayed accumulation of tracer in the hydronephrotic right kidney compared to the left. No obstructive uropathy noted on the left. Moderate hydronephrosis noted on the right. Right ureteral tracer is observed in this patient with a indwelling ureteral stent. Pre and postvoid images including the bladder show no abnormality. Differential renal function analysis is asymmetric with 62% of overall renal cortical counts coming from the left kidney and 38% coming from the right. Time to peak activity is normal bilaterally at 3.0 minutes. Time to half max activity is normal on the left and 11.2 minutes and the delayed on the right kidney greater than 30 minutes. The renal excretion curve is flat for the right kidney. Impression: Moderate hydronephrosis right kidney flat renal excretion curve. I cannot exclude some degree of obstructive uropathy. Signed by Norris Rawls MD 05/08/2017 03:44 P
== END ==
LOC: M RAD 09:41
PROVIDERS: ATTEND Urology
DX: N13.1 Hydronephrosis with ureteral stricture, not elsewhere classified (principal)

== ENCOUNTER → 2017-06-08 | Outpatient (CLI) | payer MEDICARE, BC, OTHER ==
[2017-06-08 09:54] LABS: INR 1.04
[2017-06-08 09:56] LABS: MEAN CORPUSCULAR HEMOGLOBIN 29.2 pg (27.0-33.0); MEAN CORPUSCULAR HGB CONC 32.4 g/dl (32.0-36.5); MEAN CORPUSCULAR VOLUME 90.1 fl (80.0-96.0); RED CELL DISTRIBUTION WIDTH 14.3 % (11.5-14.5); WHITE BLOOD COUNT 5.4 K/mm3 (4.0-10.0)
[2017-06-08 10:19] LABS: ANION GAP 7 MEQ/L (8-16); BLOOD UREA NITROGEN 25 MG/DL (7-18); CALCIUM LEVEL 8.5 MG/DL (8.8-10.2); CARBON DIOXIDE LEVEL 28 MEQ/L (21-32); CHLORIDE LEVEL 109 MEQ/L (98-107); GLOMERULAR FILTRATION RATE > 60.0 (>49); GLUCOSE, FASTING 92 MG/DL (80-110); POTASSIUM SERUM 4.4 MEQ/L (3.5-5.1); SODIUM LEVEL 144 MEQ/L (136-145)
== END ==
LOC: M LAB 08:50
PROVIDERS: ATTEND Urology
DX: Z01.818 Encounter for other preprocedural examination (principal); N13.1 Hydronephrosis with ureteral stricture, not elsewhere classified

== ENCOUNTER → 2017-06-08 | Outpatient (CLI) | payer MEDICARE, BC, OTHER | LOC: M LAB 08:59 | PROVIDERS: ATTEND Internal Medicine Cardiovascular Disease | DX: Z01.818 Encounter for other preprocedural examination (principal); N13.1 Hydronephrosis with ureteral stricture, not elsewhere classified; I25.10 Atherosclerotic heart disease of native coronary artery without angina pectoris; Z79.899 Other long term (current) drug therapy ==

== ENCOUNTER 2017-06-19 05:57 | Day surgery (SDC) | payer MEDICARE, BC, OTHER ==
[~2017-06-19] VITALS: Ht 172.7 cm; Wt 73.0 kg
[~2017-06-19 05:57] MED LIST changes: -CIPR-249 PO; -CRES20TA PO; -LEVA1TAB2 PO; -PROBCAP4 PO
[2017-06-19] MEDS ORDERED: LR 1,000 ML IV ONE (06:15)
[2017-06-19] MEDS ORDERED: CRES20TA PO (06:34)
[2017-06-19] MEDS ORDERED: CONRAY-60 60% 50ML VIAL (Q9961) As Ordered ONE ×2 (07:09→08:10)
[2017-06-19] MEDS ORDERED: PROPOFOL 200 MG/20 ML VIAL As Ordered ONE (07:18)
[2017-06-19] MEDS ORDERED: LIDOCAINE 2% INJ 100 MG/5 ML SDV (FOR ANES.) As Ordered ONE (07:18)
[2017-06-19] MEDS ORDERED: fentaNYL 250 MCG/5 ML INJECTION (J3010) As Ordered ONE (07:19)
[2017-06-19] MEDS ORDERED: MIDAZOLAM INJ 2 MG/2 ML VIAL (J2250) As Ordered ONE (07:19)
[2017-06-19] MEDS ORDERED: dexameTHASONE 4 MG/ML 1ML VIAL (J1100) As Ordered ONE (08:05)
[2017-06-19] MEDS ORDERED: ONDANSETRON 4MG/2ML VIAL (J2405) As Ordered ONE (08:05)
[2017-06-19] MEDS ORDERED: PERCOCET 5MG/325MG TAB PO PRN (09:15)
[2017-06-19] MEDS ORDERED: LR 1,000 ML IV SCH (09:15)
[2017-06-19] MEDS ORDERED: METOCLOPRAMIDE INJ 10MG/2ML VIAL (J2765) IV PRN (09:15)
[2017-06-19] MEDS ORDERED: fentaNYL 100 MCG/2 ML INJECTION (J3010) IV PRN (09:15)
[2017-06-19] MEDS ORDERED: ONDANSETRON 4MG/2ML VIAL (J2405) IV PRN (09:15)
[2017-06-19] MEDS ORDERED: CIPR500T3 PO (09:22)
[2017-06-19] MEDS ORDERED: TYLE650T35 PO (09:22)
[2017-06-19 10:00] VITALS: BP 145/84
--- NOTE | 2017-06-19 11:56 | REP ---
Retrograde pyelogram: Eight views. History: Right-sided hydronephrosis. Ureteral stricture. 4 minutes 56 seconds of fluoroscopy time is reported. Findings: A sequence of eight last image hold fluoroscopic spot radiographs document right ureteral cannulation and contrast injection. On the initial image there is a double pigtailed ureteral stent in place. Signed by Norris Rawls MD 06/19/2017 01:06 P
[2017-06-19] MEDS ORDERED: ACETAMINOPHEN 650MG ER TAB (TYLENOL ARTHRITIS) PO SCH (14:00)
[2017-06-19] MEDS ORDERED: CIPROFLOXACIN 500 MG TAB PO SCH (18:00)
--- NOTE | 2017-06-20 11:55 | RO ---
DATE OF PROCEDURE: 06/19/2017 PREPROCEDURE DIAGNOSES: Right hydronephrosis and right proximal ureteral stricture. POSTPROCEDURE DIAGNOSES: Right hydronephrosis and right solid hard rock ureteral stricture. SURGEON: Db Bloom MD BLOOD BANK ASSISTANT: ANESTHESIA: General. COMPLICATIONS: None. ESTIMATED BLOOD LOSS: N/A. FINDINGS: Right hydronephrosis and severely strictured area at the level of the proximal ureter, impossible to actually pass retrograde pyelogram nor a flexible ureteroscope nor a guidewire. Multiple solid defects growing into the ureteral lumen. SURGERY PERFORMED: Cystoscopy plus right retrograde pyelogram plus right ureteroscopy. HISTORY OF PRESENT ILLNESS: This is a 67-year-old male patient with a right hydronephrosis that was found on a CT scan of the abdomen and pelvis. We performed, about 4 to 6 weeks ago, a cystoscopy plus right retrograde pyelogram plus right ureteroscopy plus right double JJ stent placement plus right ureteral biopsies. The biopsy came out to be inconclusive. No atypia. There were some solid defects in the ureter, sessile lesions, that we took biopsies of and these came out negative for malignancy. We placed a stent at that moment in time and the patient has been comfortable with the stent in place. The renal function on the right sided kidney where the obstruction is 38%, the left side is 62%. For this reason, we consented him for a cystoscopy, right retrograde pyelogram, possible right double JJ stent exchange, possible right ureteral biopsies. DESCRIPTION OF PROCEDURE: In a patient under general anesthesia in supine modified low lithotomy position, after prepping and draping the area of concern, which included the entire genitalia and abdomen, we introduced a cystoscope, #21-Yi in diameter with a 30-degree lens, under videoendoscopic guidance. The fossa navicularis, penile urethra, bulbar urethra, and membranous urethra were totally normal. The prostatic urethra had a small middle lobe and two lateral lobes. The ureters were seen. The right ureter had a double JJ stent in good position. The bladder had no tumors. No stones, no foreign objects. We grabbed a right double J stent with biopsy forceps and pulled it out of the body of the patient. We cut the distal end and passed a guidewire. The guidewire could not pass the proximal stricture. We then took the old double JJ stent out and tried a curved guidewire and filiform guidewire, and we could not pass the stricture at all. We then proceeded to pass a double lumen catheter up the proximal ureter and did a retrograde pyelogram. The retrograde pyelogram did not pass the stricture neither. It seemed like the stricture had actually increased in size and length and also it had actually become stiffer, even though a double JJ stent was in place in the kidney. For this reason, we actually placed the ureteral access sheath at the distal ureter and through this one we loaded a flexible ureteroscope up to the kidney, trying to actually enter the kidney. We could not bypass the stricture. There were sessile lesions involving an obstruction lumen of the ureter, solid rock. Under direct vision, with a ureteroscope, we tried to actually bypass the narrowing with curved guidewire and a straight guidewire. It was impossible. The contrast actually returned back to the bladder and it could not pass the narrowing. The narrowing had evidently increased and solidified even worse and increasing length. For this reason, we actually did not pass anymore and we removed the ureteroscope and emptied the bladder completely. There were some bleeding vessels from the prostatic fossa and with the Bugbee we fulgurated the bleeding vessels from the prostatic fossa and took out the cystoscope. PLAN: The patient will pass through recovery and then he will go home with antibiotic and Tylenol for pain since he has no double JJ stent in the right kidney because we could not pass it. The patient will be observed. If the patient has no pain at all he will stay like this. We have a high suspicion that the narrowing of the proximal ureter is due to upper tract disease, even though the biopsies came back negative, the images on the retrograde pyelogram suspect of a filling defect caused in the proximal ureter and pelvis, and also the stricture of the disease and narrowing in fact has actually worsened with time since we actually could pass a double JJ stent before, but not the ureteroscope into the kidney, and now we cannot even pass a guidewire. Since it is worsening and we think that there is a high possibility that this could be an upper tract cancer and having the patient a normal functioning contralateral kidney, we have discussed with family and with the patient the option of robotic assisted right nephroureterectomy plus bladder cuff excision. The patient has accepted this procedure. He will followup tomorrow at [facility] [place] and we will consent him and do a preoperative lab work. We will schedule him as soon as possible for next week for a robotic assisted right nephroureterectomy and bladder cuff excision.
[2017-06-21] MEDS ORDERED: CIPR-249 PO (12:36)
[2017-06-21] MEDS ORDERED: PROBCAP4 PO (12:36)
== END 2017-06-19 10:03 | disposition home or self-care (01) ==
LOC: M SDC 05:57
PROVIDERS: ATTEND Urology
DX: N13.1 Hydronephrosis with ureteral stricture, not elsewhere classified (principal); E78.00 Pure hypercholesterolemia, unspecified; I25.10 Atherosclerotic heart disease of native coronary artery without angina pectoris; Z95.0 Presence of cardiac pacemaker; I44.7 Left bundle-branch block, unspecified; Z79.82 Long term (current) use of aspirin; Z79.899 Other long term (current) drug therapy
CPT/HCPCS: 36415; 52005; 74420; 86850; 86900; 86901; C1769; C1894; J0690; J1100; J2250; J2405; J3010; Q9961

== ENCOUNTER 2017-06-26 06:57 | Inpatient (IN) | payer MEDICARE, BC, OTHER ==
[2017-06-26] VITALS (8 sets, daily range): BP systolic 125–140; BP diastolic 74–90
[~2017-06-26] VITALS: Ht 172.7 cm; Wt 72.6 kg
[2017-06-26] MEDS: KCL 20MEQ IN D5/0.45NS 1000ML 1,000 ML IV SCH ×2 (00:02→15:45)
[~2017-06-26 06:57] MED LIST changes: +CIPR-249 PO; +CRES20TA PO; +PROBCAP4 PO
[2017-06-26] MEDS ORDERED: LR 1,000 ML IV ONE (07:15)
[2017-06-26] MEDS ORDERED: fentaNYL 250 MCG/5 ML INJECTION (J3010) As Ordered ONE (10:23)
[2017-06-26] MEDS ORDERED: ROCURONIUM BROMIDE 50 MG/5 ML VIAL/SYRINGE As Ordered ONE ×2 (10:23→10:33)
[2017-06-26] MEDS ORDERED: MIDAZOLAM INJ 2 MG/2 ML VIAL (J2250) As Ordered ONE (10:23)
[2017-06-26] MEDS ORDERED: METOCLOPRAMIDE INJ 10MG/2ML VIAL (J2765) As Ordered ONE (10:23)
[2017-06-26] MEDS ORDERED: PROPOFOL 200 MG/20 ML VIAL As Ordered ONE (10:23)
[2017-06-26] MEDS ORDERED: PHENYLephrine HCL 500 MCG/5 ML (100MCG/ML) SYRINGE (J2370) As Ordered ONE ×2 (10:24→14:13)
[2017-06-26] MEDS ORDERED: LIDOCAINE 2% JELLY 30 ML As Ordered ONE (10:24)
[2017-06-26] MEDS ORDERED: LIDOCAINE 2% INJ 100 MG/5 ML SDV (FOR ANES.) As Ordered ONE (10:24)
[2017-06-26] MEDS ORDERED: ePHEDrine SULFATE 25 MG/5 ML(5MG/ML) SYRINGE As Ordered ONE (10:24)
[2017-06-26] MEDS ORDERED: NEOSTIGMINE 1MG/ML 5 ML SYRINGE (J2710) As Ordered ONE (10:33)
[2017-06-26] MEDS ORDERED: GLYCOPYRROLATE INJ 0.2 MG/ML 2 ML VIAL As Ordered ONE (10:33)
[2017-06-26] MEDS ORDERED: ONDANSETRON 4MG/2ML VIAL (J2405) As Ordered ONE (10:33)
[2017-06-26] MEDS ORDERED: HYDROmorphone HCL 2 MG/ML 1ML VIAL (J1170) As Ordered ONE (10:33)
[2017-06-26] MEDS ORDERED: DESFLURANE 240 ML INHALANT As Ordered ONE (11:58)
[2017-06-26] MEDS ORDERED: fentaNYL 100 MCG/2 ML INJECTION (J3010) As Ordered ONE (14:07)
[2017-06-26] MEDS ORDERED: ONDANSETRON 4MG/2ML VIAL (J2405) IV PRN ×2 (15:30→15:45)
[2017-06-26] MEDS ORDERED: LR 1,000 ML IV SCH (15:30)
[2017-06-26] MEDS ORDERED: fentaNYL 100 MCG/2 ML INJECTION (J3010) IV PRN (15:30)
[2017-06-26] MEDS ORDERED: HYDROmorphone HCL 1 MG/ML SYRINGE (J1170) IV PRN (15:30)
[2017-06-26] MEDS ORDERED: PERCOCET 5MG/325MG TAB PO PRN (15:45)
[2017-06-26] MEDS ORDERED: MORPHINE 4 MG/ML 1ML SYRINGE IV PRN (15:45)
[2017-06-26 16:10] LABS: MEAN CORPUSCULAR HEMOGLOBIN 29.8 pg (27.0-33.0); MEAN CORPUSCULAR HGB CONC 33.5 g/dl (32.0-36.5); MEAN CORPUSCULAR VOLUME 88.8 fl (80.0-96.0); RED CELL DISTRIBUTION WIDTH 14.3 % (11.5-14.5); WHITE BLOOD COUNT 9.1 K/mm3 (4.0-10.0)
[2017-06-26 16:31] LABS: CALCIUM LEVEL 8.3 MG/DL (8.8-10.2); CREATININE FOR GFR 1.7 MG/DL (0.70-1.30); GLOMERULAR FILTRATION RATE 43.1 (>49); POTASSIUM SERUM 4.3 MEQ/L (3.5-5.1)
[2017-06-26] MEDS: PANTOPRAZOLE 40MG INJ (PROTONIX) (C9113) IV SCH (21:15)
[2017-06-26] MEDS: ACETAMINOPHEN 650MG ER TAB (TYLENOL ARTHRITIS) PO SCH (21:16)
[2017-06-26] MEDS: oxyCODONE 5MG TAB PO PRN (21:17)
[2017-06-26] MEDS: LevoFLOXacin 500 MG TABLET PO SCH (21:17)
[2017-06-27 00:45] VITALS: BP 125/84
[2017-06-27 04:45] VITALS: BP 130/82
[2017-06-27] MEDS: ACETAMINOPHEN 650MG ER TAB (TYLENOL ARTHRITIS) PO SCH ×3 (05:02→21:01)
[2017-06-27] MEDS: oxyCODONE 5MG TAB PO PRN ×5 (05:03→23:10)
[2017-06-27 06:00] VITALS: BP 129/85
[2017-06-27 06:56] LABS: MEAN CORPUSCULAR HEMOGLOBIN 30.5 pg (27.0-33.0); MEAN CORPUSCULAR HGB CONC 33.9 g/dl (32.0-36.5); MEAN CORPUSCULAR VOLUME 89.9 fl (80.0-96.0); RED CELL DISTRIBUTION WIDTH 14.3 % (11.5-14.5); WHITE BLOOD COUNT 8.9 K/mm3 (4.0-10.0)
[2017-06-27 07:21] LABS: CREATININE FOR GFR 1.42 MG/DL (0.70-1.30); GLOMERULAR FILTRATION RATE 53.1 (>49); POTASSIUM SERUM 4.4 MEQ/L (3.5-5.1)
[2017-06-27] MEDS: KCL 20MEQ IN D5/0.45NS 1000ML 1,000 ML IV SCH ×3 (07:46→23:09)
[2017-06-27 10:00] VITALS: BP 133/82
[2017-06-27 14:00] VITALS: BP 117/81
[2017-06-27] MEDS ORDERED: ROSUVASTATIN 10 MG TAB (CRESTOR) PO SCH (18:00)
--- NOTE | 2017-06-27 20:08 | RO ---
DATE OF PROCEDURE: 06/26/2017 PREOPERATIVE DIAGNOSES: Right hydronephrosis and right ureteral stricture. 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 SURGERY PERFORMED: Cystoscopy, plus right periureteral incision, plus right robotic nephroureterectomy, plus bladder cuff excision, plus bladder closure. SURGEON: Dr. Db Bloom IVF EMBRYOLOGIST: Marcy Tillman ANESTHESIA: General. FINDINGS: Severe desmoplastic reaction around the renal hilum, the kidney, and the whole ureter, proximal to distal up to the insertion of the ureter into the bladder. ESTIMATED BLOOD LOSS: 100 mL. COMPLICATIONS: None. HISTORY OF PRESENT ILLNESS: 67-year-old male patient that has a right hydronephrotic kidney with a proximal ureteral stricture about 1 cm in diameter. We have not been able to actually access the kidney through ureteroscopy. Biopsies were inconclusive. There is a CT scan of the abdomen and pelvis with contrast that shows a severe desmoplastic reaction of the proximal ureter and renal pelvis with thickening of the renal pelvis and a solid lesion at the level of the proximal ureter. For this reason, we have decided to actually perform a robotic-assisted right nephroureterectomy plus bladder cuff excision, bladder closure, cystoscopy, and periureteral incision. PROCEDURE DESCRIPTION: In a patient under general anesthesia in supine modified low lithotomy position, after prepping and draping the area of concern, which included the entire genitalia, we introduced a cystoscope, #21-Cuban in diameter with a 30-degree lens under videoendoscopic guidance. The fossa navicularis, penile urethra, bulbar urethra, and membranous urethra were totally normal. The prostatic urethra had lateral lobes touching, one small middle lobe. Both ureteral orifices were seen. With a Schilling knife, we actually performed a periureteral incision and fulgurated the bleeding vessels and then took the cystoscope and resectoscope out and placed a #20-Cuban Curry catheter to gravity. We then positioned the patient in the decubitolateral position with the left side down and the right side up with the table flexed at the level of the waist and the patient secured with a engel bag and straps. After prepping and draping the area of concern, which included the entire abdomen and the right flank, we actually started by doing a transverse incision supraumbilically for about 2 cm in length and opened the abdomen. Through this incision, we actually accessed the abdomen and introduced a #12-Cuban balloon trocar, inflated the balloon to 40 mL. Through this trocar, we insufflated the abdomen with CO2 at a maximum pressure of 15 at high flow. With a hand-held robotic camera to assistance, we placed the other trocars. One a subcostal trocar in the midclavicular line, 8 mm metallic trocar. One epigastric trocar 5 mm in diameter, a VersaStep 5 mm to retract the liver. An 8 mm metallic trocar in the lower quadrant of the abdomen in midclavicular line 8 cm away from the umbilicus for the left arm; and 8 cm away from this one in anterior axillary line, 2 cm away from the anterior iliac crest, we placed a long 8 mm metallic trocar. Infraumbilically, 6 cm below the umbilicus in the midline, we placed a 15 mm trocar for the payroll assistant port. We then proceeded to dock the robot. On the left arm, we used monopolar scissors and a ProGrasp. On the right arm, we used a bipolar PK. We started dissecting the line of Toldt and retracting descending colon toward the midline. Once we performed this, we did our Raoul maneuver to retract the duodenum toward the midline. We uncovered the vena cava and dissected the vena cava tissue to actually dissect the vena cava on top of it up to the renal vein. We then dissected the tissue on top of the vena cava down to the bifurcation of the iliac vein. We then proceeded to identify the ureter that crosses the iliac vessels and dissected the ureter and did a formal ureterolysis. There was severe desmoplastic reaction of the mid ureter and proximal ureter. With the third arm, we retracted the ureter laterally and lifted the lower pole of the kidney laterally. We dissected posteriorly to the lower pole with monopolar scissors. We then dissected the hilum. Once the hilum was dissected, we secured the hilum en bloc, artery, and vein with a 60 mm NIRU stapler times 2.2 mm. We then secured the upper pole attachments with another 60 mm x 2.2 Endo NIRU stapler. We then dissected the posterior part of the kidney and the lateral attachments and once the kidney was free and hemostasis was secured, we actually did a formal ureterolysis down below the iliac vessels. We then proceeded to dissect the ureter all the way down to the bladder. Once it was near the bladder, we plucked the ureter and then Hem-o-loked the ureter distally. We placed the ureter and kidney into a 15 mm Endo Catch bag. We then proceeded to secure the opening of the bladder with a V-Loc #3-0 in a running fashion and tied the V-Loc with a Hem-o-kandis. We then tested the bladder with 120 mL. There were no water leaks. At that moment in time, we undocked the third arm and placed a round drain, Trevon-Joe (JOSE DE JESUS) drain, #15 blade into the pelvis. We then secured hemostasis, took out all the instruments, undocked the robot, and extended our incision in the midline infraumbilically around the umbilicus for about 5 cm in length. Through this incision, we took out the kidney and the ureter and bladder cuff, through the midline incision. We then proceeded to actually close the midline incision with Prolene #1 in a running fashion from each angle and tied in the middle. We secured the optic port incision with Prolene #2-0 separate stitches times four and UR-6 #0 Vicryl times four in two layers. We closed each incision with wilber and placed 2 x 2's and Tegaderm on top of each incision site. The drain was secured with #3-0 nylon and placed into bulb suction. PLAN: The patient will pass through recovery and then to the floor. He will remain with a Curry catheter to gravity for 3 weeks. Once he is tolerating a regular diet, ambulating very well, he will be discharged home with antibiotic and pain medication. Followup at [facility] between 2 to 3 weeks with a cystogram to actually prove that there is no water leaks; and then if there are no leaks from the cystogram, we will discontinue the Curry catheter at that moment in time. Pathology was sent for permanent pathology analysis of the kidney, ureter, and bladder cuff. There were no complications during surgery. NOELLE
[2017-06-27] MEDS: LevoFLOXacin 500 MG TABLET PO SCH (21:01)
[2017-06-27] MEDS: PANTOPRAZOLE 40MG INJ (PROTONIX) (C9113) IV SCH (21:01)
[2017-06-27 22:00] VITALS: BP 120/83
[2017-06-28] MEDS: ACETAMINOPHEN 650MG ER TAB (TYLENOL ARTHRITIS) PO SCH ×3 (05:52→21:26)
[2017-06-28 06:00] VITALS: BP 123/85
[2017-06-28] MEDS: KCL 20MEQ IN D5/0.45NS 1000ML 1,000 ML IV SCH ×2 (07:59→21:29)
--- NOTE | 2017-06-28 09:51 | REP ---
CHEST X-RAY: Two views. HISTORY: Fever. Comparison chest x-ray April 11, 2017. FINDINGS: There is postoperative pneumoperitoneum under the right and left hemidiaphragms. The patient is 1 day status post right nephroureterectomy. There is plate-like atelectasis in the lower lobes bilaterally. The right hemidiaphragm remains somewhat elevated. There is a pacemaker in the right heart via the left side as before. No pleural effusion is seen. Exam is otherwise unremarkable. IMPRESSION: 1. Bibasilar plate-like atelectasis. 2. Postoperative pneumoperitoneum. 3. Pacemaker in place. Signed by Norris Rawls MD 06/28/2017 02:35 P
[2017-06-28 10:21] LABS: MEAN CORPUSCULAR HEMOGLOBIN 29.3 pg (27.0-33.0); MEAN CORPUSCULAR HGB CONC 32.7 g/dl (32.0-36.5); MEAN CORPUSCULAR VOLUME 89.4 fl (80.0-96.0); RED CELL DISTRIBUTION WIDTH 13.9 % (11.5-14.5); WHITE BLOOD COUNT 9.3 K/mm3 (4.0-10.0)
[2017-06-28 11:32] LABS: CALCIUM LEVEL 7.9 MG/DL (8.8-10.2); CREATININE FOR GFR 1.48 MG/DL (0.70-1.30); GLOMERULAR FILTRATION RATE 50.6 (>49); POTASSIUM SERUM 4.8 MEQ/L (3.5-5.1)
[2017-06-28] MEDS: oxyCODONE 5MG TAB PO PRN ×3 (11:41→21:27)
[2017-06-28 14:00] VITALS: BP 139/86
[2017-06-28] MEDS ORDERED: LEVA1TAB2 PO (14:29)
[2017-06-28 15:45] LABS: SOURCE, BODY FLUID CREATININE OTHER
[2017-06-28] MEDS ORDERED: ROSUVASTATIN 10 MG TAB (CRESTOR) PO SCH (18:00)
[2017-06-28] MEDS: LevoFLOXacin 500 MG TABLET PO SCH (21:26)
[2017-06-28] MEDS: PANTOPRAZOLE 40MG INJ (PROTONIX) (C9113) IV SCH (21:26)
[2017-06-28 22:00] VITALS: BP 141/60
[2017-06-29] MEDS: ACETAMINOPHEN 650MG ER TAB (TYLENOL ARTHRITIS) PO SCH (05:58)
[2017-06-29 06:00] VITALS: BP 136/84
[2017-06-29] MEDS: oxyCODONE 5MG TAB PO PRN (06:38)
--- NOTE | 2017-07-13 13:42 | DSES ---
DATE OF ADMISSION: 06/26/2017 DATE OF DISCHARGE: 06/29/2017 ADMISSION DIAGNOSES: Right hydronephrosis. Right ureteral stricture. DISCHARGE DIAGNOSES: Right hydronephrosis. Right ureteral stricture. SURGERY PERFORMED: Cystoscopy plus periurethral incision, plus right robotic nephroureterectomy plus bladder cuff excision, plus bladder closure. ADMITTING SURGEON: Db Bloom MD DISCHARGING SURGEON; Db Bloom MD HISTORY OF PRESENT ILLNESS: This is a 67-year-old male patient that had a right hydronephrotic kidney with decreased function and with a proximal ureteral stricture of about 1 cm in diameter. For this reason, he was consented for a right robotic assisted nephroureterectomy plus cystoscopy, plus periurethral excision. The patient had surgery done on 06/26/2017 and after this he was admitted to the hospital. HOSPITAL COURSE: On postop day 1, he was tolerating a regular diet, ambulating very well. His pain was controlled with IV pain medication. On postop day 2, he was started on a regular diet and ambulated very well. He is passing gas. No nausea. No vomiting. Pain was controlled with p.o. pain medication. We sent the JOSE DE JESUS fluid for creatinine check. On postop day 3, he was tolerating a regular diet, passing gas, no nausea, no vomiting. The creatinine level of the JOSE DE JESUS fluid was minimum and for this reason we discontinued the JOSE DE JESUS drainage. He requested to go home and we agreed upon this. The patient will go home with the following indications: 1. Curry catheter to gravity. 2. A cystogram between 10 and 14 days after surgery. 3. Antibiotics and pain medications. 4. He will be discharged with a regular diet and no heavy weight lifting above 20 pounds. The patient has agreed on this plan and he will go home today and followup at [facility] in about 10 to 14 days.
== END 2017-06-29 10:27 | disposition home or self-care (01) | DRG 654 ==
LOC: M OR 06:57 → M MS5PR 16:45
PROVIDERS: ADMIT Urology; ATTEND Urology
PROC: 0TT04ZZ Resection of Right Kidney, Percutaneous Endoscopic Approach (ICD-10-PCS; 2017-06-26)
PROC: 0TT64ZZ Resection of Right Ureter, Percutaneous Endoscopic Approach (ICD-10-PCS; 2017-06-26)
PROC: 8E0W8CZ Robotic Assisted Procedure of Trunk Region, Via Natural or Artificial Opening Endoscopic (ICD-10-PCS; 2017-06-26)
PROC: 0TBB4ZZ Excision of Bladder, Percutaneous Endoscopic Approach (ICD-10-PCS; principal; 2017-06-26 08:50)
DX: N13.1 Hydronephrosis with ureteral stricture, not elsewhere classified (principal)

== ENCOUNTER → 2017-07-11 | Outpatient (CLI) | payer MEDICARE, BC, OTHER ==
[~2017-07-11] MED LIST changes: +CYSTO-CONRAY II 17.2% 250ML VIAL (Q9958) As Ordered ONE; +LEVA1TAB2 PO
--- NOTE | 2017-07-11 13:47 | REP ---
CYSTOGRAM: The procedure was performed by MARY Alexander under the direct supervision of Dr. Rawls. All imaging was reviewed with Dr. Rawls prior to dictation. The urinary bladder was filled with 250 mL of Cysto-Conray through an existing Curry catheter. The urinary bladder appears normal in contour. There is no extravasation of contrast media from the surgical site. No masses or lesions were identified. IMPRESSION: Unremarkable cystogram examination. Fluoroscopy time of 14 seconds. Reviewed by MARY Joya 07/11/2017 01:48 PEdited and Signed by Norris Rawls MD 07/11/2017 04:35 P
== END ==
LOC: M RADPRO 10:31
PROVIDERS: ATTEND Nurse Practitioner Women's Health
DX: N13.1 Hydronephrosis with ureteral stricture, not elsewhere classified (principal)
CPT/HCPCS: 51700; 74430; Q9958

== ENCOUNTER → 2017-07-17 | Outpatient (REF) | payer MEDICARE, OTHER ==
[~2017-07-17] MED LIST changes: -CYSTO-CONRAY II 17.2% 250ML VIAL (Q9958) As Ordered ONE
== END ==
LOC: M SMT 17:03
PROVIDERS: ATTEND Urology
DX: N40.1 Benign prostatic hyperplasia with lower urinary tract symptoms (principal)

== ENCOUNTER → 2017-08-01 | Outpatient (CLI) | payer MEDICARE, BC, OTHER ==
[2017-08-01 13:10] LABS: CALCIUM LEVEL 8.7 MG/DL (8.8-10.2); CREATININE FOR GFR 1.33 MG/DL (0.70-1.30); GLOMERULAR FILTRATION RATE 57.3 (>49); POTASSIUM SERUM 4.6 MEQ/L (3.5-5.1)
[2017-08-01 13:14] LABS: MEAN CORPUSCULAR HEMOGLOBIN 28.2 pg (27.0-33.0); MEAN CORPUSCULAR HGB CONC 31.4 g/dl (32.0-36.5); MEAN CORPUSCULAR VOLUME 89.8 fl (80.0-96.0); RED CELL DISTRIBUTION WIDTH 13.5 % (11.5-14.5); WHITE BLOOD COUNT 5.8 10^3/uL (4.0-10.0)
== END ==
LOC: M SMT 08:55
PROVIDERS: ATTEND Urology
DX: N40.1 Benign prostatic hyperplasia with lower urinary tract symptoms (principal)

== ENCOUNTER → 2017-08-10 | Outpatient (REF) | payer MEDICARE, OTHER | LOC: M SMT 17:02 | PROVIDERS: ATTEND Urology | DX: N39.0 Urinary tract infection, site not specified (principal) ==

== ENCOUNTER → 2017-10-23 | Outpatient (CLI) | payer MEDICARE, BC, OTHER ==
[2017-10-23 12:39] LABS: MEAN CORPUSCULAR HEMOGLOBIN 28.4 pg (27.0-33.0); MEAN CORPUSCULAR HGB CONC 32.7 g/dl (32.0-36.5); MEAN CORPUSCULAR VOLUME 86.7 fl (80.0-96.0); PLATELET COUNT, AUTOMATED 177 10^3/uL (150-450); WHITE BLOOD COUNT 5.7 10^3/uL (4.0-10.0)
[2017-10-23 13:22] LABS: CALCIUM LEVEL 8.8 MG/DL (8.8-10.2); CREATININE FOR GFR 1.4 MG/DL (0.70-1.30); POTASSIUM SERUM 4.5 MEQ/L (3.5-5.1)
== END ==
LOC: M SMT 11:18
PROVIDERS: ATTEND Urology
DX: N39.0 Urinary tract infection, site not specified (principal)

== ENCOUNTER → 2018-01-21 | Outpatient (CLI) | payer MEDICARE, BC, OTHER ==
[2018-01-21 18:09] LABS: ANION GAP 4 MEQ/L (8-16); BLOOD UREA NITROGEN 19 MG/DL (7-18); CALCIUM LEVEL 8.7 MG/DL (8.8-10.2); CARBON DIOXIDE LEVEL 29 MEQ/L (21-32); CHLORIDE LEVEL 109 MEQ/L (98-107); CREATININE FOR GFR 1.39 MG/DL (0.70-1.30); GLOMERULAR FILTRATION RATE 54.4 (>49); GLUCOSE, FASTING 84 MG/DL (70-100); POTASSIUM SERUM 4.8 MEQ/L (3.5-5.1); SODIUM LEVEL 142 MEQ/L (136-145)
[2018-01-21 18:29] LABS: HEMATOCRIT 39.9 % (42.0-52.0); HEMOGLOBIN 12.8 g/dl (14.0-18.0); MEAN CORPUSCULAR HEMOGLOBIN 28.7 pg (27.0-33.0); MEAN CORPUSCULAR HGB CONC 32.1 g/dl (32.0-36.5); MEAN CORPUSCULAR VOLUME 89.5 fl (80.0-96.0); PLATELET COUNT, AUTOMATED 227 10^3/uL (150-450); RED BLOOD COUNT 4.46 10^6/uL (4.30-6.10); RED CELL DISTRIBUTION WIDTH 13.2 % (11.5-14.5); WHITE BLOOD COUNT 6.9 10^3/uL (4.0-10.0)
[2018-01-21 19:01] LABS: APPEARANCE, URINE CLEAR (CLEAR); BACTERIA, URINE AUTO NEGATIVE (NEGATIVE); BILIRUBIN, URINE AUTO NEGATIVE (NEGATIVE); BLOOD, URINE BLOOD NEGATIVE (NEGATIVE); COLOR, URINE YELLOW (YELLOW); GLUCOSE, URINE (UA) AUTO NEGATIVE (NEGATIVE); KETONE, URINE AUTO NEGATIVE (NEGATIVE); LEUKOCYTE ESTERASE, URINE AUTO NEGATIVE (NEGATIVE); NITRITE, URINE AUTO NEGATIVE (NEGATIVE); PROTEIN, URINE AUTO NEGATIVE (NEGATIVE); RBC, URINE AUTO 0 /HPF (0-3); SPECIFIC GRAVITY URINE AUTO 1.015 (1.002-1.035); SQUAMOUS EPITHELIAL CELL UR AU 0 /HPF (0-6); UROBILINOGEN, URINE AUTO 0.2 mg/dL (0.0-2.0); WBC, URINE AUTO 1 /HPF (0-3)
== END ==
LOC: M SMT 11:10
DX: N13.1 Hydronephrosis with ureteral stricture, not elsewhere classified (principal)
CPT/HCPCS: 80048

== ENCOUNTER → 2018-07-29 | Outpatient (CLI) | payer MEDICARE, BC, OTHER ==
[2018-07-31 00:06] LABS: PSA % FREE 28.1 % (.); PSA FREE 1.21 ng/mL; PSA TOTAL 4.3 ng/mL (0.0-4.0)
== END ==
LOC: M SMT 09:06
DX: Z90.5 Acquired absence of kidney (principal)
CPT/HCPCS: 84154

== ENCOUNTER → 2019-03-14 | Outpatient (CLI) | payer MEDICARE, BC, OTHER ==
[~2019-03-14] MED LIST changes: -ASPI1TAB PO; +ASPI81TA26 PO; -CRES20TA PO; +CRES20TA2 PO
[2019-03-15 14:30] LABS: PSA % FREE 18.6 % (.); PSA FREE 1.19 ng/mL; PSA TOTAL 6.4 ng/mL (0.0-4.0)
== END ==
LOC: M SMT 09:04
PROVIDERS: ATTEND Nurse Practitioner Women's Health
DX: R97.20 Elevated prostate specific antigen [PSA] (principal)

== ENCOUNTER → 2019-09-15 | Outpatient (CLI) | payer MEDICARE, BC, OTHER ==
[2019-09-16 14:07] LABS: PSA % FREE 28.6 % (.); PSA FREE 1.23 ng/mL; PSA TOTAL 4.3 ng/mL (0.0-4.0)
== END ==
LOC: M SMT 10:14
PROVIDERS: ATTEND Nurse Practitioner Women's Health
DX: R97.20 Elevated prostate specific antigen [PSA] (principal)

== ENCOUNTER → 2024-06-04 | Outpatient (CLI) | payer MEDICARE, BC ==
[~2024-06-04] MED LIST changes: +ACET650T61 PO; -TYLE650T35 PO; +VITA-243 PO; -VITA500T PO
== END ==
LOC: M CARPUL 10:28
PROVIDERS: ATTEND Internal Medicine Cardiovascular Disease
DX: I44.7 Left bundle-branch block, unspecified (principal)

== ENCOUNTER → 2025-03-12 | Outpatient (REF) | payer MEDICARE, OTHER ==
[2025-03-16 12:57] LABS: PSA FREE 1.2 ng/mL; PSA TOTAL 4.6 ng/mL (< OR = 4.0)
== END ==
LOC: M LAB REF 11:52
PROVIDERS: ATTEND Internal Medicine
DX: R97.20 Elevated prostate specific antigen [PSA] (principal)